=== PATIENT | male | born 1970 | race Hispanic/Latino ===

== ENCOUNTER 2017-08-10 02:08 | Observation (INO) | payer OTHER ==
[2017-08-10] MEDS ORDERED: Nitroglycerin 0.4 MG TAB (25 Tab Bottle) ONE (02:37)
[2017-08-10 02:42] LABS: #Eosinphils 0.3 thou/uL (0.0-0.7); #Lymphocytes 1.9 thou/uL (1.20-3.40); #Monocytes 0.6 thou/uL (0.11-0.59); %Basophils 0.7 % (0.0-1.0); %Eosinophils 4.6 % (0.0-10.0); %Lymphocytes 32.3 % (21.0-51.0); %Monocytes 10.9 % (0.0-10.0); %Neutrophils 51.5 % (42.0-75.0); Hemoglobin 12.5 g/dL (14.0-18.0); Mean Corpuscular HGB CONC 36.2 g/dL (32.0-36.0); Mean Corpuscular Hemoglobin 29.8 pg (27.0-31.0); Mean Corpuscular Volume 82.3 fl (80.0-94.0); Mean Platelet Volume 8.3 fL (7.4-10.4); Platelet Count 168 thou/uL (130-400); RBC Distribution Width 14.3 % (11.5-14.5); Red Blood Cell (RBC) Count 4.21 mill/uL (4.70-6.10); White Blood Cell (WBC) Count 5.8 thou/uL (4.8-10.8)
[2017-08-10 02:48] LABS: PTT 26.2 SEC (22.9-36.1); Prothrombin Time 13.4 SEC (12.0-14.7)
[2017-08-10 03:01] LABS: ALT (SGPT) 40 U/L (8-55); AST (SGOT) 27 U/L (5-34); Albumin 4.6 g/dL (3.5-5.0); Alkaline Phosphatase 76 U/L (40-150); Anion Gap 14 mmol/L (10-20); BUN (Urea Nitrogen) 34 mg/dL (8.9-20.6); Bilirubin, Total 0.7 mg/dL (0.2-1.2); Calc. Creatinine Clearance 0 mL/min (70-130); Calcium 10.4 mg/dL (7.8-10.44); Carbon Dioxide 30 mmol/L (22-29); Chloride 95 mmol/L (98-107); Estimated GFR-MDRD 36; Glucose 289 mg/dL (70-105); Potassium 4.1 mmol/L (3.5-5.1); Protein, Total 8.6 g/dL (6.0-8.3); Sodium 135 mmol/L (136-145)
[2017-08-10 03:04] LABS: CKMB 4.9 ng/mL (0-6.6); Troponin I 0.028 ng/mL (< 0.028)
[2017-08-10 03:07] LABS: Digoxin 0.67 ng/mL (0.8-2.0)
[2017-08-10 06:22] LABS: Troponin I 0.026 ng/mL (< 0.028)
[2017-08-10 08:17] VITALS: BMI 24.8
[2017-08-10] MEDS ORDERED: Ondansetron HCl/PF 4 MG/2 ML Vial IVP PRN (08:35)
[2017-08-10] MEDS ORDERED: Ondansetron ODT 4 MG TAB SL PRN (08:35)
[2017-08-10] MEDS ORDERED: Acetaminophen 325 MG TAB PO PRN ×2 (08:35→09:39)
--- NOTE | 2017-08-10 08:45 | RAD ---
RADIOGRAPH CHEST 1 VIEW: HISTORY: A 47-year-old male with acute chest pain. FINDINGS: There are no air space densities, pulmonary edema, pneumothorax, or cardiomegaly. The lateral costop hrenic angles are sharp. IMPRESSION: No acute cardiopulmonary findings. jn [] POS: RONALDO
--- NOTE | 2017-08-10 09:31 | CT ---
PRELIMINARY REPORT/[facility]/EMERGENTY AFTER-HOURS PROCEDURE CT Head Without Intravenous Contrast CLINICAL HISTORY: 47 years old, male; Signs and symptoms; Dizziness; Patient HX: M 47 presents to ed with cp and dizzin ess that began yesterday morning. Pt reports that he had some difficulty speaking in the evening marisol gside dizziness and feelings of instability. Pt states that his last mi presented with similar sympto ms 2 years ago in [facility]. Speech and stability have improved, currently on anti-coags. Had 2 stent s placed 2 years ago. Jun 08 pt had stent replaced due to 100% occlusion. Nkma TECHNIQUE: Axial computed tomography images of the head/brain without intravenous contrast. COMPARISON: No relevant prior studies available. FINDINGS: Brain: No acute stroke or bleed. No significant white matter disease.3.2 x 1.7 cm low density extraax ial focus anterior to left frontal lobe consistent with arachnoid cyst vs chronic subdural hygroma. Ventricles: No acute findings. No ventriculomegaly. Bones/joints: No acute findings. No acute fracture. Soft tissues: No acute findings. Sinuses: Unremarkable as visualized. No acute sinusitis. Mastoid air cells: Unremarkable as visualized. No mastoid effusion. IMPRESSION: No acute intracranial pathology. Low density extra-axial focus anterior to left frontal lobe consistent with arachnoid cyst vs chronic subdural hygroma. Thank you for allowing us to participate in the care of your patient. Dictated and Authenticated by: Sirena Bustos MD 08/10/2017 4:28 AM Central Time ([place] & [place]) FINAL REPORT BRAIN CT WITHOUT IV CONTRAST: EMERGENCY AFTER HOURS EXAM TIME: 3:20 a.m. DATE: 08/10/17. FINDINGS: Small low attenuation focus extraaxial location anterior t the left frontal lobe, evidence for an pato chnoid cyst versus a chronic subdural hygroma. No mass or bleed or other acute process. POS: OFF
[2017-08-10] MEDS ORDERED: Nitroglycerin 0.4 MG TAB (25 Tab Bottle) PO PRN (09:39)
[2017-08-10] MEDS ORDERED: Dextrose 5% in Water 1,000 ML IV PRN (09:39)
[2017-08-10] MEDS ORDERED: Dextrose 50% Abboject 50 ML SYRINGE SLOW IVP PRN (09:39)
[2017-08-10] MEDS ORDERED: Bisacodyl 5 MG TAB PO PRN (09:39)
[2017-08-10 09:48] LABS: Troponin I 0.028 ng/mL (< 0.028)
--- NOTE | 2017-08-10 10:22 | HP ---
PRIMARY CARE PHYSICIAN: Dr. Cj Fontana in [place], [place]. CHIEF COMPLAINT: Chest pain. HISTORY OF PRESENT ILLNESS: Mr. Brown is a pleasant 47-year-old gentleman who was seen at [facility] on 08/10/2017. Three days ago, he developed dizziness. He reports that it started in the morning, but disappeared b y the evening. Yesterday morning, he was doing well. Towards the evening, he developed dizziness ag ain. He felt clammy. He also reportedly had difficulty speaking. He reports that he had similar sy mptoms before his heart attack. He came to the emergency room because of dizziness. In the emergency room, he developed left-sided c hest pain, pressure-like, nonradiating, 5/10 at its worst, accompanied by diaphoresis and shortness o f breath, but not by nausea. He cannot recall any aggravating or relieving factors. He also reports that the back of his neck felt sore when he was having the chest pain. REVIEW OF SYSTEMS: The following complete review of systems was negative, unless otherwise mentioned in the HPI or below: Constitutional: Weight loss or gain, ability to conduct usual activities. Skin: Rash, itching. Eyes: Double vision, pain. ENT/Mouth: Nose bleeding, neck stiffness, pain, tenderness. Cardiovascular: Palpitations, dyspnea on exertion, orthopnea. Respiratory: Shortness of breath, wheezing, cough, hemoptysis, fever or night sweats. Gastrointestinal: Poor appetite, abdominal pain, heartburn, nausea, vomiting, constipation, or diarr hea. Genitourinary: Urgency, frequency, dysuria, nocturia. Musculoskeletal: Pain, swelling. Neurologic/Psychiatric: Anxiety, depression. Allergy/Immunologic: Skin rash, bleeding tendency. PAST MEDICAL HISTORY: Significant for diabetes mellitus type 2, diabetic ulcers, hypertension, chron ic kidney disease, peripheral neuropathy and myocardial infarction. PAST SURGICAL HISTORY: Significant for cardiac stents x2 and right fifth toe amputation. SOCIAL HISTORY: The patient denies tobacco use, alcohol use or recreational drug use. FAMILY HISTORY: No family history of premature coronary artery disease. ALLERGIES: No known drug allergies. CURRENT MEDICATIONS: Include losartan 25 mg daily, aspirin 81 mg daily, atorvastatin 40 mg daily, di goxin 125 mcg daily, duloxetine 60 mg daily, Effient 10 mg daily, Bydureon 2 mg subcutaneously once a week, fenofibrate 48 mg daily, gabapentin 600 mg 3 times a day, Levemir insulin 10 units daily, Angie log insulin 20 units 3 times a day, metoprolol succinate 50 mg daily, and niacin 500 mg daily at bedt deion. PHYSICAL EXAMINATION: GENERAL: On examination, Mr. Kevin High is awake and alert, not in acute distress. VITAL SIGNS: Blood pressure is 114/70, pulse is 94, his breathing at rate of 18, and saturating 96% on room air. He is afebrile. EYES: No scleral icterus. No conjunctival pallor. ENT: Moist mucosal membranes, no oropharyngeal erythema or exudates. NECK: Supple, nontender, normal range of movement. Trachea is midline. RESPIRATORY: Accessory muscles of breathing are not active. Chest wall movements are symmetric bila terally. LUNGS: Clear to auscultation without wheeze, rhonchi or crepitations. CARDIOVASCULAR: S1 and S2 are heard, regular. LUNGS: Peripheral pulses palpable. No carotid bruit, no pericardial rub. ABDOMEN: Soft, nontender, bowel sounds heard, no hepatomegaly, no splenomegaly. NEUROLOGIC: Cranial nerves II-XII intact. Deep tendon reflexes are 2+. MUSCULOSKELETAL: Status post right fifth toe amputation. Power is 5/5 in all 4 extremities. SKIN: No rashes or subcutaneous nodules. Couple of scabs over the velasco. LYMPHATIC: No cervical lymphadenopathy. PSYCHIATRIC: Normal mood, normal affect. The patient is oriented to person, place, and time. IMAGING DATA AND LABORATORY DATA: Mr. Kevin High's labs and investigations were reviewed. I revie wed his electrocardiogram, which shows T-wave inversions in the lateral leads, what appear to be biph asic T waves in anterior leads. The patient is in sinus rhythm. I also reviewed his chest x-ray, wh ich does not show any pulmonary infiltrates. He also had a noncontrast CT scan of the brain, which d id not show any acute intracranial pathology. He has a small low attenuation focus at extraaxial loc ation anterior to the left frontal lobe, evidence for an arachnoid cyst versus a chronic subdural hyg vinnie. He has normal white count, normocytic anemia with hemoglobin 12.5, normal platelet count, INR 1.0, decreased sodium of 135, normal potassium, elevated carbon dioxide of 30, elevated blood urea ni trogen of 34, elevated creatinine 2.01, unremarkable liver profile, troponin I that is negative x3 an d a low digoxin level of 0.67. ASSESSMENT AND PLAN: Mr. Kevin High is a pleasant 47-year-old gentleman who was seen at [facility] on 08/10/2017. His problem list includes: 1. Chest pain: Etiology unclear. He does have a history of coronary artery disease. He will be ad mitted to the hospital for telemetry monitoring. Cardiology Service has been consulted by emergency room physician. We will await opinion and instructions. 2. Diabetes mellitus type 2: Start Accu-Cheks and insulin sliding scale. 3. Dyslipidemia: Continue statin. 4. Chronic kidney disease: Baseline creatinine unclear, although he had creatinine level of 1.79 on 08/01/2017. Provide gentle hydration and recheck. 5. Hypertension: Monitor vital signs, titrate antihypertensives as needed. Many thanks for allowing me to participate in your patient's care. Please feel free to contact me wi th any questions or concerns. LEVEL OF RISK: High. LEVEL OF COMPLEXITY: High.
[2017-08-10] MEDS ORDERED: Exenatide Microspheres [Bydureon Pen] 2 MG SC SCH (10:30)
[2017-08-10] MEDS ORDERED: Communication Order-Pharmacy FS SCH (14:45)
[2017-08-10] MEDS ORDERED: Sodium Chloride 0.9% 1,000 ML IV SCH (15:00)
[2017-08-10] MEDS: Sodium Chloride 0.9% 1,000 ML IV SCH (15:45)
[2017-08-10] MEDS: Gabapentin 300 MG CAP PO SCH ×2 (15:45→21:19)
[2017-08-10] MEDS: Heparin 5,000 UNITS/ML VIAL SC SCH ×2 (15:45→21:20)
--- NOTE | 2017-08-10 16:45 | CON ---
DATE OF CONSULTATION: 08/10/2017 HISTORY: Raleigh Brown Jr. is a 47-year-old male admitted with chest discomfort. Two years ago, he had placement of 2 stents, each in different arteries according to the patient. He then on 06/08/2017 presented with a "massive heart attack." He underwent cardiac catheterization. He states that he was told that his artery was 100% blocked. Resolute 3.0 x 22 mm stent was placed in the LAD according to the product information card. All these procedures were performed at [facility]. He states that he came back to [place], so his mother could help him recover from his myocardial infarction. He has had intermittent episodes of dizziness over the past 2-3 days. He then had an episode yesterday morning, where he felt somewhat dizzy, was clammy, had pain in his neck and occipital area of his head and had difficulty speaking. Because of these symptoms, he came into the emergency room. While in the emergency room, he stated he developed left-sided chest pressure, accompanied by shortness of breath and diaphoresis. He states the total duration of his chest pain was approximately 1 hour and during this time, he would have 5 minutes of pain and would seem to resolve and then would recur again with each episode lasting approximately 5 minutes. In the emergency room, he was given aspirin 162 mg, sublingual nitroglycerin. He therefore was admitted for further evaluation, but he has not had any recurrence of the chest discomfort. PAST MEDICAL HISTORY: Hypertension, diabetes, hypercholesterolemia, chronic kidney disease, myocardial infarction, and coronary artery disease. OPERATIONS: Amputation of right fifth toe in 03/2017. MEDICATIONS: Aspirin 81 daily, atorvastatin 40 at bedtime, vitamin D3 daily, Lanoxin 0.125 daily, Cymbalta 60 daily, Bydureon 2 mg every 7 days, gabapentin 600 mg t.i.d., Levemir insulin, lispro insulin, losartan 25 daily, metoprolol XL 25 daily, niacin 500 mg at bedtime, Effient 10 mg daily. ALLERGIES: None. SOCIAL HISTORY: He does not smoke or drink. He works loading trucks. FAMILY HISTORY: Father had CABG. PHYSICAL EXAMINATION: VITAL SIGNS: Blood pressure 126/80, pulse of 92. HEENT: PERRL. NECK: Supple. CHEST: Clear. CARDIAC: S1, S2 normal, without any S3, S4 or murmurs. Carotid upstrokes normal without bruits. ABDOMEN: Normal bowel sounds without tenderness or organomegaly. EXTREMITIES: Revealed no clubbing, cyanosis or edema. NEUROLOGIC: Grossly intact. SKIN: Warm and dry. LABORATORY DATA: EKG revealed normal sinus rhythm with septal infarction and inverted T waves V4 through V6. Cardiac enzymes were unremarkable. Hemoglobin 12.5, hematocrit 34.6, white count 5800. Sodium 135, potassium 4.1, chloride 95 , carbon dioxide 30, BUN 34, creatinine 2.01 (creatinine was 1.79 nine days previously). BNP is 88.1. IMPRESSION: 1. Placement of 2 coronary artery stents in 2 different vessels, according to patient 2 years ago. 2. Probable anteroseptal ST-elevation myocardial infarction with totally occluded vessel followed by placement of a Resolute 3.0 x 22 mm stent in the left anterior descending. His EKG is consistent with an anteroseptal myocardial infarction. I doubt that he has in-stent thrombosis. The time course is somewhat early for in-stent restenosis, although it certainly could be a possibility. He may also have vascular disease in other vessels. 3. Hypertension. 4. Hypercholesterolemia. 5. Diabetes. 6. Peripheral vascular disease, status post amputation of right fifth toe for diabetic ulcer. 7. Positive family history. 8. Chronic kidney disease. PLAN: Fasting lipid profile and echocardiogram will be performed. With the patient's chronic kidney disease, he will be gently hydrated. It was recommended he undergo cardiac catheterization after a period of hydration. Risks of catheterization were discussed including , myocardial infarction, dye reaction, vascular injury, CVA, transfusion, limb loss, renal loss, etc. Also, risk of intervention with PTCA and stent placement were discussed including , myocardial infarction, emergent CABG, restenosis, stent thrombosis, vessel perforation, etc. He currently is on Effient and had a drug- coated stent placed 2 months ago and if needed another drug-coated stent will be placed. The patient understands and agrees to proceed. JUMANA
[2017-08-10] MEDS: HumaLOG 300 UNITS/3 ML VIAL SC PRN ×2 (17:36→21:20)
[2017-08-10] MEDS ORDERED: Non-Formulary Item 1 EACH (Insulin Glargine,Hum.Rec.Anlog [Basaglar Kwikpen U-100] 10 UNI SQ SCH (21:00)
[2017-08-10] MEDS: Atorvastatin Calcium 40 MG TAB PO SCH (21:19)
[2017-08-10] MEDS: Insulin Detemir 100 UNITS/ML 10 UNITS in Pre-Filled Syringe 1 EACH SC SCH (21:20)
[2017-08-10] MEDS: Niacin 500 MG TAB PO SCH (21:21)
[2017-08-11 05:08] LABS: #Eosinphils 0.2 thou/uL (0.0-0.7); #Lymphocytes 2.3 thou/uL (1.20-3.40); #Monocytes 0.6 thou/uL (0.11-0.59); #Neutrophils 2.5 thou/uL (1.40-6.50); %Basophils 0.4 % (0.0-1.0); %Eosinophils 4.3 % (0.0-10.0); %Lymphocytes 40.8 % (21.0-51.0); %Monocytes 11.3 % (0.0-10.0); %Neutrophils 43.3 % (42.0-75.0); Hemoglobin 11.8 g/dL (14.0-18.0); Mean Corpuscular HGB CONC 35.6 g/dL (32.0-36.0); Mean Corpuscular Hemoglobin 29.7 pg (27.0-31.0); Mean Corpuscular Volume 83.3 fl (80.0-94.0); Mean Platelet Volume 8.3 fL (7.4-10.4); Platelet Count 158 thou/uL (130-400); RBC Distribution Width 14.2 % (11.5-14.5); Red Blood Cell (RBC) Count 3.96 mill/uL (4.70-6.10); White Blood Cell (WBC) Count 5.7 thou/uL (4.8-10.8)
[2017-08-11 05:36] LABS: Anion Gap 15 mmol/L (10-20); BUN (Urea Nitrogen) 27 mg/dL (8.9-20.6); Calc. Creatinine Clearance 61 mL/min (70-130); Calcium 9.8 mg/dL (7.8-10.44); Carbon Dioxide 26 mmol/L (22-29); Cardiac Risk 4.5 (Less than 4.5); Chloride 101 mmol/L (98-107); Cholesterol 116 mg/dl (< 200 Desired); Estimated GFR-MDRD 37; Glucose 258 mg/dL (70-105); HDL Cholesterol 26 mg/dL (>60 Neg Risk); LDL Cholesterol, Calculated 22 mg/dL; Sodium 138 mmol/L (136-145); Triglycerides 341 mg/dL (Less than 150)
[2017-08-11] MEDS: HumaLOG 300 UNITS/3 ML VIAL SC PRN ×4 (05:38→20:33)
[2017-08-11] MEDS ORDERED: Sodium Chloride 0.9% 1,000 ML IV SCH (06:00)
[2017-08-11] MEDS: Prasugrel 10 MG TAB PO SCH (08:19)
[2017-08-11] MEDS: Gabapentin 300 MG CAP PO SCH ×3 (08:19→20:33)
[2017-08-11] MEDS: DULoxetine 60 MG CAP PO SCH (08:20)
[2017-08-11] MEDS: Digoxin 0.125 MG TAB PO SCH (08:20)
[2017-08-11] MEDS: Losartan 25 MG TAB PO SCH (08:20)
[2017-08-11] MEDS: Heparin 5,000 UNITS/ML VIAL SC SCH ×3 (08:21→20:33)
--- NOTE | 2017-08-11 10:41 | PDOC.PN ---
- Subjective Encounter Start Date: 08/11/17 Encounter Start Time: 07:40 Pt seen for followup re:chest pain. Denies chest pain, shortness of breath, fevers or chills. - Objective MAR Reviewed: Yes Vital Signs & Weight: Vital Signs (12 hours) Temp Pulse Resp BP Pulse Ox 08/11/17 08:20 93 08/11/17 08:00 97.7 F 93 16 08/11/17 07:57 97.7 F 99 16 105/70 93 L 08/11/17 05:46 94 L 08/11/17 04:00 98.4 F 93 14 95/53 L 94 L Weight Weight 204 lb I&O: 08/10/17 08/11/17 08/12/17 06:59 06:59 06:59 Intake Total 1780 551 Balance 1780 551 Result Diagrams: 08/11/17 04:30 08/11/17 04:30 Additional Labs: Accuchecks 08/11/17 08/10/17 08/10/17 05:39 20:43 16:50 POC Glucose 262 H 291 H 254 H 08/10/17 10:59 POC Glucose 296 H EKG Reviewed by me: Yes (Tele: NSR) Phys Exam - Physical Examination Constitutional: NAD HEENT: PERRLA, moist MMs, sclera anicteric, oral pharynx no lesions Neck: no nodes, no JVD, supple, full ROM Respiratory: no wheezing, no rales, no rhonchi, clear to auscultation bilateral Cardiovascular: RRR, no rub Gastrointestinal: soft, non-tender, no distention, positive bowel sounds s/p R 5th toe amputation Neurological: moves all 4 limbs Psychiatric: normal affect, A&O x 3 Dx/Plan (1) Chest pain Code(s): R07.9 - CHEST PAIN, UNSPECIFIED Status: Acute Comment: For cath on Sunday, continue to monitor on tele (2) DM2 (diabetes mellitus, type 2) Status: Chronic Comment: Continue accuchecks, insulin sliding scale (3) Dyslipidemia Code(s): E78.5 - HYPERLIPIDEMIA, UNSPECIFIED Status: Chronic Comment: continue statin (4) CKD (chronic kidney disease) Code(s): N18.9 - CHRONIC KIDNEY DISEASE, UNSPECIFIED Status: Chronic Comment : Cr slightly improved - Plan * . Review of Systems - Review of Systems Constitutional: negative: fever, chills, sweats, weakness, malaise Respiratory: negative: Cough, Shortness of Breath, SOB with Excertion, Pleuritic Pain, Wheezing Cardiovascular: negative: chest pain, palpitations, orthopnea, paroxysmal nocturnal dyspnea, edema, light headedness Gastrointestinal: negative: Nausea, Vomiting, Abdominal Pain, Diarrhea, Constipation, Melena, Hematochezia Genitourinary: negative: Dysuria, Frequency, Incontinence, Hematuria, Retention Neurological: negative: Weakness, Numbness, Incoordination, Change in Speech, Confusion, Seizures - Medications/Allergies Allergies/Adverse Reactions: Allergies Allergy/AdvReac Type Severity Reaction Status Date / Time No Known Allergies Allergy Unverified 08/10/17 08:18 Medications: Current Medications Acetaminophen (Tylenol) 650 mg PO Q4H PRN PRN Reason: Headache/Fever or Pain Aspirin (Aspirin Chewable) 81 mg PO DAILY [facility] Last Admin: 08/11/17 08:20 Dose: 81 mg Atorvastatin Calcium (Lipitor) 40 mg PO HS [facility] Last Admin: 08/10/17 21:19 Dose: 40 mg Bisacodyl (Dulcolax) 10 mg PO DAILYPRN PRN PRN Reason: Constipation Cholecalciferol (Vitamin D3) 1,000 units PO DAILY [facility] Last Admin: 08/11/17 08:20 Dose: 1,000 units Dextrose/Water (Dextrose 50%) 25 gm SLOW IVP PRN PRN PRN Reason: Hypoglycemia Digoxin (Lanoxin) 0.125 mg PO DAILY [facility] Last Admin: 08/11/17 08:20 Dose: 0.125 mg Duloxetine HCl (Cymbalta) 60 mg PO DAILY [facility] Last Admin: 08/11/17 08:20 Dose: 60 mg Gabapentin (Neurontin) 600 mg PO TID [facility] Last Admin: 08/11/17 08:19 Dose: 600 mg Glucagon (Glucagon) 1 mg IM PRN PRN PRN Reason: Hypoglycemia Heparin Sodium (Porcine) (Heparin) 5,000 units SC TID [facility] Last Admin: 08/11/17 08:21 Dose: 5,000 units Dextrose/Water (D5w) 1,000 mls @ 0 mls/hr IV .Q0M PRN; As Directed PRN Reason: Hypoglycemia Insulin Detemir 10 units/ (Miscellaneous Medication) 0.1 mls @ 0 mls/hr SC HS [facility] Last Admin: 08/10/17 21:20 Dose: 0.1 mls Sodium Chloride (Normal Saline 0.9%) 1,000 mls @ 50 mls/hr IV .Q20H [facility] Last Admin: 08/10/17 15:45 Dose: 1,000 mls Sodium Chloride (Normal Saline 0.9%) 1,000 mls @ 100 mls/hr IV .Q10H [facility] Insulin Human Lispro (Humalog) 0 units SC .MILD SLIDING SCALE PRN PRN Reason: Mild Correctional Scale Last Admin: 08/11/17 05:38 Dose: 4 unit Losartan Potassium (Cozaar) 25 mg PO DAILY [facility] Last Admin: 08/11/17 08:20 Dose: 25 mg Metoprolol Succinate (Toprol Xl) 25 mg PO DAILY [facility] Last Admin: 08/11/17 08:19 Dose: 25 mg Miscellaneous Information (Communication Order-Pharmacy) 0 each FS ONE [facility] Stop: 08/13/17 18:00 Niacin (Niacin) 500 mg PO [facility] Last Admin: 08/10/17 21:21 Dose: 500 mg Nitroglycerin (Nitrostat) 0.4 mg PO Q5MIN PRN PRN Reason: Chest Pain Exenatide Microspheres [ Bydureon Pen] 2 Mg 0 each SC Q7D [facility] Prasugrel (Effient) 10 mg PO DAILY [facility] Last Admin: 08/11/17 08:19 Dose: 10 mg
[2017-08-11] MEDS: Sodium Chloride 0.9% 1,000 ML IV SCH (11:11)
[2017-08-11] MEDS: Niacin 500 MG TAB PO SCH (20:32)
[2017-08-11] MEDS: Atorvastatin Calcium 40 MG TAB PO SCH (20:32)
[2017-08-11] MEDS: Insulin Detemir 100 UNITS/ML 10 UNITS in Pre-Filled Syringe 1 EACH SC SCH (20:33)
[2017-08-12] MEDS: HumaLOG 300 UNITS/3 ML VIAL SC PRN ×4 (05:57→20:51)
[2017-08-12] MEDS: Sodium Chloride 0.9% 1,000 ML IV SCH (05:57)
[2017-08-12] MEDS: DULoxetine 60 MG CAP PO SCH (09:32)
[2017-08-12] MEDS: Heparin 5,000 UNITS/ML VIAL SC SCH ×3 (09:32→20:43)
[2017-08-12] MEDS: Gabapentin 300 MG CAP PO SCH ×3 (09:32→20:43)
[2017-08-12] MEDS: Digoxin 0.125 MG TAB PO SCH (09:32)
[2017-08-12] MEDS: Prasugrel 10 MG TAB PO SCH (09:33)
[2017-08-12] MEDS: Losartan 25 MG TAB PO SCH (09:33)
[2017-08-12 12:02] LABS: Anion Gap 13 mmol/L (10-20); BUN (Urea Nitrogen) 24 mg/dL (8.9-20.6); Calc. Creatinine Clearance 91 mL/min (70-130); Calcium 9.3 mg/dL (7.8-10.44); Carbon Dioxide 24 mmol/L (22-29); Chloride 103 mmol/L (98-107); Estimated GFR-MDRD 59; Glucose 265 mg/dL (70-105); Potassium 4.1 mmol/L (3.5-5.1); Sodium 136 mmol/L (136-145)
--- NOTE | 2017-08-12 14:55 | PDOC.PN ---
- Subjective Encounter Start Date: 08/12/17 Encounter Start Time: 10:30 Pt seen for followup re: chest pain. No new complaints today. - Objective MAR Reviewed: Yes Vital Signs & Weight: Vital Signs (12 hours) Temp Pulse Resp BP Pulse Ox 08/12/17 11:10 98.1 F 97 16 109/70 96 08/12/17 09:32 99 08/12/17 09:29 96 08/12/17 07:43 98.0 F 99 18 108/67 97 08/12/17 07:29 98.4 F 99 16 08/12/17 04:25 98.4 F 99 16 100/50 L 94 L Weight Weight 202 lb 11.2 oz I&O: 08/11/17 08/12/17 08/13/17 06:59 06:59 06:59 Intake Total 1780 4559 1760.3 Output Total 1525 1200 Balance 1780 3034 560.3 Result Diagrams: 08/11/17 04:30 08/12/17 11:27 Additional Labs: Accuchecks 08/12/17 08/12/17 08/11/17 11:11 05:58 20:30 POC Glucose 259 H 197 H 280 H 08/11/17 16:14 POC Glucose 302 H EKG Reviewed by me: Yes (Tele: NSR) Phys Exam - Physical Examination Constitutional: NAD HEENT: moist MMs, sclera anicteric, oral pharynx no lesions, 2+ tonsils Neck: no nodes, no JVD, supple, full ROM Respiratory: no wheezing, no rales, no rhonchi, clear to auscultation bilateral Cardiovascular: RRR, no rub Gastrointestinal: soft, non-tender, no distention, positive bowel sounds Neurological: moves all 4 limbs Psychiatric: normal affect, A&O x 3 Dx/Plan (1) Chest pain Code(s): R07.9 - CHEST PAIN, UNSPECIFIED Status: Acute Comment: For cath tomorrow, continue to monitor on tele (2) DM2 (diabetes mellitus, type 2) Status: Chronic Comment: accuchecks, insulin sliding scale (3) Dyslipidemia Code(s): E78.5 - HYPERLIPIDEMIA, UNSPECIFIED Status: Chronic Comment: on statin (4) CKD (chronic kidney disease) Code(s): N18.9 - CHRONIC KIDNEY DISEASE, UNSPECIFIED Status: Chronic Comment : Cr significantly improved - Plan * . Review of Systems - Review of Systems Constitutional: negative: fever, chills, sweats, weakness, malaise Respiratory: negative: Cough, Shortness of Breath, Pleuritic Pain, Wheezing Cardiovascular: negative: chest pain, palpitations, orthopnea, paroxysmal nocturnal dyspnea, edema, light headedness, other Genitourinary: negative: Dysuria, Frequency, Incontinence, Hematuria, Retention Skin: negative: Rash, Lesions, Butch, Bruising Neurological: negative: Weakness, Numbness, Incoordination, Change in Speech, Confusion, Seizures - Medications/Allergies Allergies/Adverse Reactions: Allergies Allergy/AdvReac Type Severity Reaction Status Date / Time No Known Allergies Allergy Unverified 08/10/17 08:18 Medications: Current Medications Acetaminophen (Tylenol) 650 mg PO Q4H PRN PRN Reason: Headache/Fever or Pain Aspirin (Aspirin Chewable) 81 mg PO DAILY [facility] Last Admin: 08/12/17 09:32 Dose: Not Given Atorvastatin Calcium (Lipitor) 40 mg PO HS [facility] Last Admin: 08/11/17 20:32 Dose: 40 mg Bisacodyl (Dulcolax) 10 mg PO DAILYPRN PRN PRN Reason: Constipation Cholecalciferol (Vitamin D3) 1,000 units PO DAILY [facility] Last Admin: 08/12/17 09:32 Dose: Not Given Dextrose/Water (Dextrose 50%) 25 gm SLOW IVP PRN PRN PRN Reason: Hypoglycemia Digoxin (Lanoxin) 0.125 mg PO DAILY [facility] Last Admin: 08/12/17 09:32 Dose: Not Given Duloxetine HCl (Cymbalta) 60 mg PO DAILY [facility] Last Admin: 08/12/17 09:32 Dose: Not Given Gabapentin (Neurontin) 600 mg PO TID [facility] Last Admin: 08/12/17 14:36 Dose: 600 mg Glucagon (Glucagon) 1 mg IM PRN PRN PRN Reason: Hypoglycemia Heparin Sodium (Porcine) (Heparin) 5,000 units SC TID [facility] Last Admin: 08/12/17 14:35 Dose: 5,000 units Dextrose/Water (D5w) 1,000 mls @ 0 mls/hr IV .Q0M PRN; As Directed PRN Reason: Hypoglycemia Insulin Detemir 10 units/ (Miscellaneous Medication) 0.1 mls @ 0 mls/hr SC HS [facility] Last Admin: 08/11/17 20:33 Dose: 0.1 mls Sodium Chloride (Normal Saline 0.9%) 1,000 mls @ 50 mls/hr IV .Q20H [facility] Last Admin: 08/12/17 05:57 Dose: 1,000 mls Sodium Chloride (Normal Saline 0.9%) 1,000 mls @ 100 mls/hr IV .Q10H [facility] Insulin Human Lispro (Humalog) 0 units SC .MILD SLIDING SCALE PRN PRN Reason: Mild Correctional Scale Last Admin: 08/12/17 11:17 Dose: 4 unit Losartan Potassium (Cozaar) 25 mg PO DAILY [facility] Last Admin: 08/12/17 09:33 Dose: Not Given Metoprolol Succinate (Toprol Xl) 25 mg PO DAILY [facility] Last Admin: 08/12/17 09:33 Dose: Not Given Miscellaneous Information (Communication Order-Pharmacy) 0 each FS ONE [facility] Stop: 08/13/17 18:00 Niacin (Niacin) 500 mg PO [facility] Last Admin: 08/11/17 20:32 Dose: 500 mg Nitroglycerin (Nitrostat) 0.4 mg PO Q5MIN PRN PRN Reason: Chest Pain Exenatide Microspheres [ Bydureon Pen] 2 Mg 0 each SC Q7D [facility] Prasugrel (Effient) 10 mg PO DAILY [facility] Last Admin: 08/12/17 09:33 Dose: Not Given
[2017-08-12] MEDS: Atorvastatin Calcium 40 MG TAB PO SCH (20:43)
[2017-08-12] MEDS: Niacin 500 MG TAB PO SCH (20:48)
[2017-08-12] MEDS: Insulin Detemir 100 UNITS/ML 10 UNITS in Pre-Filled Syringe 1 EACH SC SCH (20:49)
[2017-08-13] MEDS: Sodium Chloride 0.9% 1,000 ML IV SCH ×3 (04:37→17:49)
[2017-08-13 05:26] LABS: Anion Gap 13 mmol/L (10-20); BUN (Urea Nitrogen) 21 mg/dL (8.9-20.6); Calc. Creatinine Clearance 101 mL/min (70-130); Calcium 9.4 mg/dL (7.8-10.44); Carbon Dioxide 25 mmol/L (22-29); Chloride 103 mmol/L (98-107); Estimated GFR-MDRD 67; Glucose 254 mg/dL (70-105); Potassium 3.7 mmol/L (3.5-5.1); Sodium 137 mmol/L (136-145)
[2017-08-13] MEDS: Gabapentin 300 MG CAP PO SCH ×3 (05:35→21:47)
[2017-08-13] MEDS: Digoxin 0.125 MG TAB PO SCH (05:36)
[2017-08-13] MEDS: Losartan 25 MG TAB PO SCH (05:37)
[2017-08-13] MEDS: DULoxetine 60 MG CAP PO SCH (05:37)
[2017-08-13] MEDS: Heparin 5,000 UNITS/ML VIAL SC SCH (05:38)
[2017-08-13] MEDS: Prasugrel 10 MG TAB PO SCH (05:39)
[2017-08-13] MEDS ORDERED: Heparin 10,000 UNITS/1 ML VIAL ONE (06:41)
[2017-08-13] MEDS ORDERED: Lidocaine 1% (PF) 30 ML VIAL ONE (06:44)
[2017-08-13] MEDS ORDERED: Midazolam HCl 2 mg/2 ml Vial ONE (07:19)
[2017-08-13] MEDS ORDERED: Fentanyl 100 MCG/2 ML VIAL ONE (07:20)
[2017-08-13] MEDS ORDERED: Bivalirudin 250 MG VIAL ONE (07:53)
[2017-08-13] MEDS ORDERED: Sodium Chloride 0.9% 1,000 ML IV SCH (08:23)
[2017-08-13] MEDS ORDERED: Iopamidol 370 76% 50 ML VIAL FS ONE (13:54)
[2017-08-13] MEDS ORDERED: Iopamidol 370 76% 100 ML VIAL ONE (13:54)
--- NOTE | 2017-08-13 16:54 | PDOC.PN ---
- Subjective Encounter Start Date: 08/13/17 Encounter Start Time: 16:53 Pt seen for followup re: diabetes mellitus 2. Denies chest pain, shortness of breath, fevers or chills. No nausea or vomiting. - Objective MAR Reviewed: Yes Vital Signs & Weight: Vital Signs (12 hours) Temp Pulse Resp BP Pulse Ox 08/13/17 16:16 114/61 08/13/17 15:56 96 H 97/55 L 08/13/17 15:38 98.1 F 99 20 91/51 L 95 08/13/17 12:45 98.1 F 96 20 128/84 97 08/13/17 05:36 97 Weight Weight 201 lb 6.4 oz I&O: 08/12/17 08/13/17 08/14/17 06:59 06:59 06:59 Intake Total 4559 4149.3 1019 Output Total 1525 4000 200 Balance 3034 149.3 819 Result Diagrams: 08/11/17 04:30 08/13/17 04:14 Additional Labs: Accuchecks 08/12/17 08/12/17 20:45 16:48 POC Glucose 286 H 259 H EKG Reviewed by me: Yes (Tele: NSR) Phys Exam - Physical Examination Constitutional: NAD HEENT: moist MMs Neck: supple Respiratory: clear to auscultation bilateral Cardiovascular: RRR Gastrointestinal: soft Musculoskeletal: no edema Neurological: moves all 4 limbs Psychiatric: normal affect Skin: cap refill <2 seconds Dx/Plan (1) DM2 (diabetes mellitus, type 2) Status: Chronic Comment: continue accuchecks, insulin sliding scale (2) Dyslipidemia Code(s): E78.5 - HYPERLIPIDEMIA, UNSPECIFIED Status: Chronic Comment: continue statin (3) CKD (chronic kidney disease) Code(s): N18.9 - CHRONIC KIDNEY DISEASE, UNSPECIFIED Status: Chronic Comment : Cr improving (4) Chest pain Code(s): R07.9 - CHEST PAIN, UNSPECIFIED Status: Resolved Comment: s/p cath. - Plan * . Observe overnight, home tomorrow, per cardiology service. Review of Systems - Review of Systems Respiratory: negative: Cough, Shortness of Breath, Hemoptysis, Pleuritic Pain, Sputum, Wheezing Cardiovascular: negative: chest pain, palpitations, orthopnea, paroxysmal nocturnal dyspnea, edema, light headedness - Medications/Allergies Allergies/Adverse Reactions: Allergies Allergy/AdvReac Type Severity Reaction Status Date / Time No Known Allergies Allergy Unverified 08/10/17 08:18 Medications: Current Medications Acetaminophen (Tylenol) 650 mg PO Q4H PRN PRN Reason: Headache/Fever or Pain Aspirin (Aspirin Chewable) 81 mg PO DAILY [facility] Last Admin: 08/13/17 05:37 Dose: 81 mg Atorvastatin Calcium (Lipitor) [address] [facility] Last Admin: 08/12/17 20:43 Dose: 40 mg Bisacodyl (Dulcolax) 10 mg PO DAILYPRN PRN PRN Reason: Constipation Cholecalciferol (Vitamin D3) 1,000 units PO DAILY [facility] Last Admin: 08/13/17 05:38 Dose: Not Given Dextrose/Water (Dextrose 50%) 25 gm SLOW IVP PRN PRN PRN Reason: Hypoglycemia Digoxin (Lanoxin) 0.125 mg PO DAILY [facility] Last Admin: 08/13/17 05:36 Dose: 0.125 mg Duloxetine HCl (Cymbalta) 60 mg PO DAILY [facility] Last Admin: 08/13/17 05:37 Dose: 60 mg Gabapentin (Neurontin) 600 mg PO TID [facility] Last Admin: 08/13/17 14:00 Dose: 600 mg Glucagon (Glucagon) 1 mg IM PRN PRN PRN Reason: Hypoglycemia Dextrose/Water (D5w) 1,000 mls @ 0 mls/hr IV .Q0M PRN; As Directed PRN Reason: Hypoglycemia Insulin Detemir 10 units/ (Miscellaneous Medication) 0.1 mls @ 0 mls/hr SC [facility] Last Admin: 08/12/17 20:49 Dose: 0.1 mls Sodium Chloride (Normal Saline 0.9%) 1,000 mls @ 100 mls/hr IV .Q10H [facility] Last Admin: 08/13/17 05:34 Dose: 1,000 mls Insulin Human Lispro (Humalog) 0 units SC .MILD SLIDING SCALE PRN PRN Reason: Mild Correctional Scale Last Admin: 08/12/17 20:51 Dose: 4 unit Isosorbide Mononitrate (Imdur Er) 30 mg PO DAILY [facility] Last Admin: 08/13/17 13:56 Dose: 30 mg Losartan Potassium (Cozaar) 25 mg PO DAILY [facility] Last Admin: 08/13/17 05:37 Dose: 25 mg Metoprolol Succinate (Toprol Xl) 25 mg PO DAILY [facility] Last Admin: 08/13/17 05:35 Dose: 25 mg Miscellaneous Information (Communication Order-Pharmacy) 0 each FS ONE [facility] Stop: 08/13/17 18:00 Niacin (Niacin) 500 mg PO HS [facility] Last Admin: 08/12/17 20:48 Dose: 500 mg Nitroglycerin (Nitrostat) 0.4 mg PO Q5MIN PRN PRN Reason: Chest Pain Exenatide Microspheres [ Bydureon Pen] 2 Mg 0 each SC Q7D [facility] Prasugrel (Effient) 10 mg PO DAILY [facility] Last Admin: 08/13/17 05:39 Dose: Not Given
[2017-08-13] MEDS: HumaLOG 300 UNITS/3 ML VIAL SC PRN (17:41)
[2017-08-13] MEDS: Niacin 500 MG TAB PO SCH (21:48)
[2017-08-13] MEDS: Atorvastatin Calcium 40 MG TAB PO SCH (21:48)
[2017-08-13] MEDS: Insulin Detemir 100 UNITS/ML 10 UNITS in Pre-Filled Syringe 1 EACH SC SCH (21:49)
[2017-08-14] MEDS: Sodium Chloride 0.9% 1,000 ML IV SCH ×2 (03:51→14:16)
[2017-08-14 05:14] VITALS: TEMP 98.2
[2017-08-14 05:31] LABS: #Eosinphils 0.2 thou/uL (0.0-0.7); #Lymphocytes 1.6 thou/uL (1.20-3.40); #Monocytes 0.5 thou/uL (0.11-0.59); #Neutrophils 2.2 thou/uL (1.40-6.50); %Basophils 0.4 % (0.0-1.0); %Eosinophils 4.2 % (0.0-10.0); %Monocytes 10.6 % (0.0-10.0); %Neutrophils 49.9 % (42.0-75.0); Hemoglobin 10.5 g/dL (14.0-18.0); Mean Corpuscular HGB CONC 34.8 g/dL (32.0-36.0); Mean Corpuscular Hemoglobin 29.2 pg (27.0-31.0); Mean Corpuscular Volume 83.7 fl (80.0-94.0); Platelet Count 125 thou/uL (130-400); RBC Distribution Width 14.3 % (11.5-14.5); Red Blood Cell (RBC) Count 3.58 mill/uL (4.70-6.10); White Blood Cell (WBC) Count 4.5 thou/uL (4.8-10.8)
[2017-08-14 06:07] LABS: ALT (SGPT) 39 U/L (8-55); AST (SGOT) 28 U/L (5-34); Albumin 3.8 g/dL (3.5-5.0); Alkaline Phosphatase 56 U/L (40-150); Anion Gap 10 mmol/L (10-20); BUN (Urea Nitrogen) 18 mg/dL (8.9-20.6); Bilirubin, Total 0.8 mg/dL (0.2-1.2); Calc. Creatinine Clearance 118 mL/min (70-130); Calcium 9.2 mg/dL (7.8-10.44); Carbon Dioxide 27 mmol/L (22-29); Chloride 105 mmol/L (98-107); Estimated GFR-MDRD 82; Glucose 187 mg/dL (70-105); Potassium 3.4 mmol/L (3.5-5.1); Protein, Total 6.8 g/dL (6.0-8.3); Sodium 139 mmol/L (136-145)
[2017-08-14] MEDS: Gabapentin 300 MG CAP PO SCH (08:26)
[2017-08-14] MEDS: Losartan 25 MG TAB PO SCH (08:26)
[2017-08-14] MEDS: Digoxin 0.125 MG TAB PO SCH (08:26)
[2017-08-14] MEDS: DULoxetine 60 MG CAP PO SCH (08:26)
[2017-08-14] MEDS: Prasugrel 10 MG TAB PO SCH (09:00)
[2017-08-14 12:52] VITALS: BP 123/83
--- NOTE | 2017-08-14 16:28 | EKG ---
Test Reason : Blood Pressure : / mmHG Vent. Rate : 094 BPM Atrial Rate : 094 BPM P-R Int : 150 ms QRS Dur : 094 ms QT Int : 336 ms P-R-T Axes : 045 060 153 degrees QTc Int : 420 ms Normal sinus rhythm T wave abnormality, consider anterolateral ischemia or ME Abnormal ECG When compared with ECG of 13-AUG-2017 08:55, No significant change was found Confirmed by DR. Erica GOODWIN ([id number]) on 08/14/2017 4:27:42 PM Referred By: MARY ANN Confirmed By:DR. Erica GOODWIN
--- NOTE | 2017-08-14 18:37 | DIS ---
DATE OF ADMISSION: 08/10/2017 DATE OF DISCHARGE: 08/14/2017 ADMITTING DIAGNOSIS: Acute chest pain. DISCHARGE DIAGNOSIS: Acute chest pain, noncardiac. SECONDARY DIAGNOSES: 1. Type 2 diabetes mellitus. 2. History of coronary artery disease. 3. History of chronic kidney disease. CONSULTATIONS: Consultants involved in the care is Dr. Domo Ryan. PROCEDURES DONE DURING THIS ADMISSION: 1. Cardiac catheterization. 2. A 2D echo showing evidence of ejection fraction of 35% to 40%. HISTORY OF PRESENT ILLNESS AND HOSPITAL COURSE: In brief, this is a 47-year-old white male, who was admitted for acute chest pain associated with some dizziness. The patient came to the ER with dizzin ess and he developed a left-sided chest pain with pressure-like radiating to the left arm, 5/10 and a ccompanied by diaphoresis and shortness of breath. The patient has history of LAD stent placed [facility] and the patient was worried about stent stenosis. He was seen by Dr. Domo Ryan from Cardio [facility] and initially there was no evidence to do a cath, but because of his recent stent placement, his tory of recent GA, the patient's chest pain and EKG consistent with recent anteroseptal GA, the patie nt needs to be ruled out for coronary artery disease. The patient had a cardiac catheterization, whi ch did not show any evidence of stent thrombosis. The patient was started on Imdur and was discharge d home in stable condition. PHYSICAL EXAMINATION: On the day of discharge: VITAL SIGNS: Blood pressure is 123/83, heart rate is 94, respiratory rate is 12, and saturations 95% . CARDIOVASCULAR: S1, S2 normal. No murmurs, rubs or gallops. LUNGS: Bilateral air entry was equal. No wheezing, no crackles. ABDOMEN: Soft, nontender, no guarding, no rebound tenderness. Bowel sounds normal. MUSCULOSKELETAL: No calf tenderness. No pedal edema. No joint tenderness, no joint swelling. SKIN: No cyanosis, no erythema, no rash, no pallor. DISCHARGE MEDICATIONS: 1. Insulin lispro 20 units subcutaneously t.i.d. 2. Aspirin 81 mg p.o. daily. 3. Atorvastatin 40 mg p.o. daily. 4. Digoxin 0.125 mg p.o. daily. 5. Duloxetine 60 mg p.o. daily. 6. Gabapentin 600 mg p.o. t.i.d. 7. Insulin glargine 10 units subcutaneously at bedtime. 8. Losartan 25 mg p.o. daily. 9. Metoprolol 25 mg p.o. daily. 10. Niacin 500 mg p.o. at bedtime. 11. Effient 10 mg p.o. daily. NEW DISCHARGE MEDICATION: Imdur 30 mg p.o. daily. DISCHARGE INSTRUCTIONS: Continue activity as tolerated. Advised to follow up with primary care phys davin in 1-2 weeks. Advised to return back to the ER if the patient develops any persistent chest pa ins. Continue with the cardiac diet. I spent 35 minutes with this patient on the day of discharge.
== END 2017-08-14 14:31 | disposition home or self-care (01) ==
LOC: ERS 02:08 → 2SW 05:36
PROVIDERS: ADMIT Family Medicine; ATTEND Family Medicine
PROC: 4A023N7 Measurement of Cardiac Sampling and Pressure, Left Heart, Percutaneous Approach (ICD-10-PCS; principal; 2017-08-14)
PROC: B2151ZZ Fluoroscopy of Left Heart using Low Osmolar Contrast (ICD-10-PCS; 2017-08-14)
DX: R07.89 Other chest pain (principal); I25.10 Atherosclerotic heart disease of native coronary artery without angina pectoris; E11.22 Type 2 diabetes mellitus with diabetic chronic kidney disease; I12.9 Hypertensive chronic kidney disease with stage 1 through stage 4 chronic kidney disease, or unspecified chronic kidney disease; N18.9 Chronic kidney disease, unspecified; E11.622 Type 2 diabetes mellitus with other skin ulcer; E11.42 Type 2 diabetes mellitus with diabetic polyneuropathy; I25.2 Old myocardial infarction; E78.5 Hyperlipidemia, unspecified; Z79.82 Long term (current) use of aspirin; Z79.4 Long term (current) use of insulin; Z79.02 Long term (current) use of antithrombotics/antiplatelets; Z79.899 Other long term (current) drug therapy; Z95.5 Presence of coronary angioplasty implant and graft; Z89.421 Acquired absence of other right toe(s)
CPT/HCPCS: 36415; 36416; 70450; 71045; 80048; 80053; 80061; 80162; 82553; 83880; 84484; 85025; 85610; 85730; 90471; 90732; 93005; 93010; 93306; 93458; 93571; 93798; 94760; 96360; 96361; 99152; 99153; C1769; C1887; G0009; G0378; J0153; J0583; J1644; J1815; J2001; J2250; J3010